=== PATIENT | male | born 1985 | race Caucasian/White ===

== ENCOUNTER 2017-05-06 09:49 | Outpatient (CLI) ==
[2017-05-06 10:07] LABS: BASOPHILS # (AUTO) 0.1 K/uL (0-0.2); BASOPHILS % (AUTO) 1.4 % (0.0-3.0); EOSINOPHILS # (AUTO) 0.2 K/ul (0.0-0.7); EOSINOPHILS % (AUTO) 5.3 % (0.0-7.0); HEMATOCRIT 46.8 % (42.0-52.0); HEMOGLOBIN 16.5 g/dl (14.0-18.0); IMMATURE GRANULOCYTE % (AUTO) 0.5 % (0.0-5.0); LYMPHOCYTES # (AUTO) 1.4 K/uL (0.60-3.4); LYMPHOCYTES % (AUTO) 31.8 (10.0-50.0); MEAN CORPUSCULAR HGB CONC 35.3 (31.8-35.4); MEAN CORPUSCULAR VOLUME 85.1 fl (80.0-94.0); MONOCYTES # (AUTO) 0.3 K/uL (0.4-2.0); MONOCYTES % (AUTO) 7.3 (0-10); NEUTROPHILS # (AUTO) 2.4 K/ul (2.0-6.9); NEUTROPHILS % (AUTO) 53.7; PLATELET COUNT 194 10^3/uL (140-440); WHITE BLOOD COUNT 4.37 K/ul (4.2-10.2)
[2017-05-06 10:48] LABS: ALBUMIN 4.2 g/dL (3.4-5.0); ALBUMIN/GLOBULIN RATIO 1.24; ANION GAP 14.9; BILIRUBIN,TOTAL 0.76 mg/dL (0.00-1.20); BUN/CREATININE RATIO 13.72; CALCIUM 10.4 mg/dL (8.2-10.2); CHOL/HDL RATIO 6.6 (4.5-6.4); CREATININE 1.02 mg/dL (0.60-1.10); POTASSIUM 3.9 mmol/L (3.5-5.1); TOTAL PROTEIN 7.6 g/dL (6.4-8.2)
== END 2017-05-06 09:50 | disposition home or self-care (01) ==
LOC: LAB 09:49
PROVIDERS: ATTEND Internal Medicine
DX: Z68.31 Body mass index [BMI] 31.0-31.9, adult (principal); Z82.49 Family history of ischemic heart disease and other diseases of the circulatory system
CPT/HCPCS: 36415; 80053; 80061; 83036; 84439; 84443; 85025; 86140; 86141

== ENCOUNTER 2018-01-23 11:32 | Emergency (ER) ==
[2018-01-23 11:35] VITALS: BP 165/103; TEMP 98.2; BMI 28.7
[2018-01-23] MEDS ORDERED: LOMOTIL PO STA (12:31)
[2018-01-23] MEDS ORDERED: SODIUM CHLORIDE 1,000 ML IV STA (12:33)
--- NOTE | 2018-01-23 13:21 | CT ---
EXAM: CT of the abdomen pelvis without contrast History: Abdominal pain and diarrhea. Technique: Multiplanar CT images through the abdomen and pelvis were obtained without the administra tion of IV contrast Findings: Lung bases are free of consolidation. Subsegmental atelectasis seen within the left lower lung. No acute osseous abnormalities. No discrete gallstones identified by CT. The liver might be fatty. No focal liver or splenic lesion s. No peripancreatic inflammation. Adrenal glands are unremarkable. Nonspecific mid mesenteric str anding probably related to the enteritis. The appendix is normal. No renal stones and no hydronephr osis. No free air. No ascites. No bladder wall thickening. Prostate is not enlarged. Fluid seen in the stomach. Nondilated fluid filled loops of small bowel. Fluid seen within the colon. No obvi ous bowel wall thickening. Small reactive mesenteric lymph nodes. Impression: 1. Mild gastroenterocolitis probably of viral etiology. No bowel obstruction. 2. Possible fatty liver.
--- NOTE | 2018-01-23 13:54 | ED.PDOC ---
General ED Provider: Dr. DIANELYS BULL Chief Complaint: Diarrhea Stated Complaint: diarrhea Time Seen by Physician: 11:33 Mode of Arrival: Walk-In Information Source: Patient Exam Limitations: No limitations Primary Care Provider: ELIAZAR BYRD Nursing and Triage Documentation Reviewed and Agree: Yes Reviewed sepsis parameters & appropriate labs ordered?: Yes (seen with blanca present) System Inflammatory Response Syndrome: Not Applicable Sepsis Protocol: For patient's 13 years and over: Temp is 96.8 and below OR 101 and greater Pulse >90 BPM Resp >20/minute Acutely Altered Mental Status Are patient's symptoms suggestive of a new infection, such as: -Pneumonia -Skin, Soft Tissue -Endocarditis -UTI -Bone, Joint Infection -Implantable Device -Acute Abdominal Infection -Wound Infection -Meningitis -Blood Stream Catheter Infection -Unknown GI Complaint Exam - Abdominal Pain Complaint/Exam Onset: Gradual Duration: 4 days Symptoms Are: Resolved Timing: Intermittent Initial Severity: Moderate Current Severity: None Location of Pain: Diffuse Radiates To: Denies: Chest, Back, Flank, LLQ, RLQ, Inguinal Character: Reports: Aching Aggravating: Reports: None Alleviating: Reports: None Associated Signs and Symptoms: Reports: Diarrhea. Denies: Diaphoresis, Fever, Cough, Chest pain, Dizziness, Back pain, Constipation, Blood in stool, Dysuria, Urinary frequency, Decreased urine output, Decreased appetite, Discharge, Nausea , Vomiting, Decreased activity AAA Risk Factors: Reports: None Cardiac Risk Factors: Reports: None Testicular Torsion Risk Factors: Reports: None Surgical Obstruction Risk Factors: Reports: None Related Surgical History: Reports: None Abdominal Findings: Present: None Differential Diagnoses: Gastroenteritis, Hepatitis Review of Systems - Review Of Systems Constitutional: Reports: No symptoms Eyes: Reports: No symptoms Ears, Nose, Mouth, Throat: Reports: No symptoms Respiratory: Reports: No symptoms Cardiac: Reports: No symptoms GI: Reports: Abdominal pain, Diarrhea : Reports: No symptoms Musculoskeletal: Reports: No symptoms Skin: Reports: No symptoms Neurological: Reports: No symptoms Endocrine: Reports: No symptoms Hematologic/Lymphatic: Reports: No symptoms All Other Systems: Reviewed and Negative Past Medical History - Past Medical History Previously Healthy: Yes Endocrine: Reports: None Cardiovascular: Reports: None Respiratory: Reports: None Hematological: Reports: None Gastrointestinal: Reports: None Genitourinary: Reports: None Neuro/Psych: Reports: None Musculoskeletal: Reports: None Cancer: Reports: None - Surgical History General Surgical History: Reports: None - Family History Family History: Reports: None - Social History Smoking Status: Never smoker Hx Substance Use: No Alcohol Screening: None Physical Exam - Physical Exam Appearance: Well-appearing, No pain distress, Well-nourished Eyes: VIVI, EOMI, Conjunctiva clear ENT: Ears normal, Nose normal, Oropharynx normal Respiratory: Airway patent, Breath sounds clear, Breath sounds equal, Respirations nonlabored Cardiovascular: RRR, Pulses normal, No rub, No murmur GI/: Soft, Nontender, No masses, Bowel sounds normal, No Organomegaly Musculoskeletal: Normal strength, ROM intact, No edema, No calf tenderness Skin: Warm, Dry, Normal color Neurological: Sensation intact, Motor intact, Reflexes intact, Cranial nerves intact, Alert, Oriented Psychiatric: Affect appropriate, Mood appropriate Interpretation - Radiology Interpretation Radiology Interpretation By: Radiologist Radiology Results: No acute changes Critical Care Note - Critical Care Note Total Time (mins): 0 Course - Course Hematology/Chemistry: 01/23/18 12:50 01/23/18 12:50 Orders, Labs, Meds: Lab Review 01/23/18 01/23/18 12:50 12:50 WBC 7.02 RBC 5.94 Hgb 17.7 Hct 50.3 MCV 84.7 MCH 29.8 MCHC 35.2 RDW Coeff of Samm 12.5 Plt Count 233 Immature Gran % (Auto) 0.3 Neut % (Auto) 59.3 Lymph % (Auto) 24.2 [place] % (Auto) 9.5 Eos % (Auto) 5.4 Baso % (Auto) 1.3 Immature Gran # (Auto) 0.0 Neut # (Auto) 4.2 Lymph # (Auto) 1.7 [place] # (Auto) 0.7 Eos # (Auto) 0.4 Baso # (Auto) 0.1 Sodium 137 Potassium 3.6 Chloride 105 Carbon Dioxide 20 L Anion Gap 15.6 BUN 21 H Creatinine 1.10 Estimated GFR (MDRD) 78.00 BUN/Creatinine Ratio 19.09 Glucose 89 Calcium 9.6 Total Bilirubin 1.2 AST 104 H ALT 227 H Alkaline Phosphatase 153 H Total Protein 8.1 Albumin 4.3 Globulin 3.8 Albumin/Globulin Ratio 1.13 Orders Category Date Time Status C-DIFF MONITORING (NURSING) BID CARE 01/23/18 12:31 Active ED IV/MEDIPORT/POWERPORT .ONCE EMERGENCY 01/23/18 12:33 Active CBC W/ AUTO DIFF Stat LAB 01/23/18 12:50 Completed COMPREHENSIVE METABOLIC PANEL Stat LAB 01/23/18 12:50 Completed HEPATITIS PANEL, ACUTE Stat LAB 01/23/18 13:51 Ordered c-diff [C. DIFFICILE] Routine LAB 01/23/18 12:31 Uncollected 0.9 % Sodium Chloride [Saline Flush] MEDS 01/23/18 12:33 Active 1 syr IVF PRN PRN Diphenoxylate HCl/Atropine [Lomotil] MEDS 01/23/18 12:31 Discontinued 2 tab PO ONCE STA Sodium Chloride 0.9% [Sodium Chloride] 1,000 ml MEDS 01/23/18 12:[address] ABDOMEN/PELVIS WO CONTRAST Stat RADS 01/23/18 12:30 Completed Medications Generic Name Dose Route Start Last Admin Trade Name Freq PRN Reason Stop Dose Admin Sodium Chloride 1 syr 01/23/18 12:33 01/23/18 13:02 Saline Flush IVF 1 syr PRN PRN Administration To flush IV Discontinued Medications Generic Name Dose Route Start Last Admin Trade Name Freq PRN Reason Stop Dose Admin Diphenoxylate HCl/Atropine 2 tab 01/23/18 12:31 01/23/18 13:02 Lomotil PO 01/23/18 12:32 2 tab ONCE STA Administration Sodium Chloride 1,000 mls @ 1,000 mls/hr 01/23/18 12:33 01/23/18 13:07 Sodium Chloride IV 01/23/18 13:32 1,000 mls/hr BOLUS STA Administration Vital Signs: Temp Pulse Resp BP Pulse Ox 01/23/18 11:32 98.2 F 97 H 20 165/103 H 98 Departure - Departure Time of Disposition: 13:54 Disposition: HOME SELF-CARE Discharge Problem: Diarrhea Instructions: Abdominal Pain (ED), Dehydration (ED), Acute Diarrhea (ED) Condition: Good Pt referred to PMD for follow-up: Yes IPMP verified?: No Additional Instructions: Please call your Family Physician as soon as possible to schedule a follow-up appointment. see yourMD SOON POSSIBLE THERE IS A POSSIBILITY THAT YOU HAVE A HEPATITIS TESTS HAVE BEEN ORDERED OBTAIN RESULT FOLLOW UP WITH YOUR MD. FAILURE TO DO SO MAY RESULT IN SERIOUS LIVER FAILURE Allergies/Adverse Reactions: Allergies No Known Allergies Allergy (Unverified 01/23/18 11:35) Home Medications: Ambulatory Orders 1 [No Reported Medications] 01/23/18 Disposition Discussed With: Patient
== END 2018-01-23 14:39 | disposition home or self-care (01) ==
LOC: ED 11:32
DX: R19.7 Diarrhea, unspecified (principal); R10.84 Generalized abdominal pain
CPT/HCPCS: 36415; 80053; 80074; 85025; 96360; 99283

== ENCOUNTER 2018-01-24 19:18 | Emergency (ER) ==
[2018-01-24 19:19] VITALS: BMI 28.7
[2018-01-24 19:21] VITALS: BP 159/102; TEMP 97.9
[2018-01-24] MEDS ORDERED: ZOFRAN 4 MG/2 ML IM STA (19:54)
--- NOTE | 2018-01-24 19:56 | ED.PDOC ---
General ED Provider: Dr. DAMEON TAVARES Chief Complaint: Abdominal Pain Stated Complaint: Patient was here yesterday for the same problem, Ct scan showed enteritis, says he went home had 2 vomiting, 2-3 diarrhea, feels bloated so came back. Time Seen by Physician: 19:55 Mode of Arrival: Walk-In Information Source: Patient Primary Care Provider: ELIAZAR BYRD Nursing and Triage Documentation Reviewed and Agree: Yes Reviewed sepsis parameters & appropriate labs ordered?: Yes System Inflammatory Response Syndrome: Not Applicable Sepsis Protocol: For patient's 13 years and over: Temp is 96.8 and below OR 101 and greater Pulse >90 BPM Resp >20/minute Acutely Altered Mental Status Are patient's symptoms suggestive of a new infection, such as: -Pneumonia -Skin, Soft Tissue -Endocarditis -UTI -Bone, Joint Infection -Implantable Device -Acute Abdominal Infection -Wound Infection -Meningitis -Blood Stream Catheter Infection -Unknown GI Complaint Exam - Abdominal Pain Complaint/Exam Onset: Gradual Symptoms Are: Still present Timing: Constant Initial Severity: Moderate Current Severity: Moderate Location of Pain: Discrete, Epigastric Character: Reports: Dull, Cramping Aggravating: Reports: None Alleviating: Reports: None Associated Signs and Symptoms: Reports: Nausea, Vomiting, Diarrhea. Denies: Diaphoresis, Fever, Cough, Chest pain, Dizziness, Back pain, Constipation, Blood in stool, Dysuria, Urinary frequency, Decreased urine output, Decreased appetite, Discharge, Decreased activity Related History: Reports: Similar episode AAA Risk Factors: Reports: None Cardiac Risk Factors: Reports: None Testicular Torsion Risk Factors: Reports: None Surgical Obstruction Risk Factors: Reports: None Related Surgical History: Reports: None Abdominal Findings: Present: None Differential Diagnoses: Gastroenteritis Review of Systems - Review Of Systems Constitutional: Reports: No symptoms Eyes: Reports: No symptoms Ears, Nose, Mouth, Throat: Reports: No symptoms Respiratory: Reports: No symptoms Cardiac: Reports: No symptoms GI: Reports: Abdominal pain, Nausea, Vomiting : Reports: No symptoms Musculoskeletal: Reports: No symptoms Skin: Reports: No symptoms Neurological: Reports: No symptoms Endocrine: Reports: No symptoms Hematologic/Lymphatic: Reports: No symptoms All Other Systems: Reviewed and Negative Past Medical History - Past Medical History Previously Healthy: Yes Endocrine: Reports: None Cardiovascular: Reports: None Respiratory: Reports: None Hematological: Reports: None Gastrointestinal: Reports: Other (elevated liver enzymes) Genitourinary: Reports: None Neuro/Psych: Reports: None Musculoskeletal: Reports: None Cancer: Reports: None - Surgical History General Surgical History: Reports: None - Family History Family History: Reports: None - Social History Smoking Status: Never smoker Hx Substance Use: No Alcohol Screening: None - Immunizations Tetanus Shot up to Date: Yes Physical Exam - Physical Exam Appearance: Well-appearing, No pain distress, Well-nourished Eyes: VIVI, EOMI, Conjunctiva clear ENT: Ears normal, Nose normal, Oropharynx normal Respiratory: Airway patent, Breath sounds clear, Breath sounds equal, Respirations nonlabored Cardiovascular: RRR, Pulses normal, No rub, No murmur GI/: Soft, Nontender, No masses, Bowel sounds normal, No Organomegaly Musculoskeletal: Normal strength, ROM intact, No edema, No calf tenderness Skin: Warm, Dry, Normal color Neurological: Sensation intact, Motor intact, Reflexes intact, Cranial nerves intact, Alert, Oriented Psychiatric: Affect appropriate, Mood appropriate Interpretation - Radiology Interpretation Radiology Interpretation By: Radiologist Radiology Results: Positive (diarrhea.) Critical Care Note - Critical Care Note Total Time (mins): 30 Course - Course Hematology/Chemistry: 01/24/18 19:55 01/24/18 19:55 Orders, Labs, Meds: Lab Review 01/24/18 01/24/18 19:55 19:55 WBC 8.44 RBC 5.32 Hgb 15.8 Hct 45.0 MCV 84.6 MCH 29.7 MCHC 35.1 RDW Coeff of Samm 12.6 Plt Count 211 Immature Gran % (Auto) 0.4 Neut % (Auto) 71.1 Lymph % (Auto) 13.6 [place] % (Auto) 9.6 Eos % (Auto) 4.6 Baso % (Auto) 0.7 Immature Gran # (Auto) 0.0 Neut # (Auto) 6.0 Lymph # (Auto) 1.2 [place] # (Auto) 0.8 Eos # (Auto) 0.4 Baso # (Auto) 0.1 Sodium 141 Potassium 3.4 L Chloride 108 H Carbon Dioxide 22 Anion Gap 14.4 BUN 13 Creatinine 1.07 Estimated GFR (MDRD) 80.00 BUN/Creatinine Ratio 12.14 Glucose 106 H Calcium 9.0 Total Bilirubin 0.8 AST 98 H ALT 229 H Alkaline Phosphatase 144 H Total Protein 7.2 Albumin 4.0 Globulin 3.2 Albumin/Globulin Ratio 1.25 Amylase 42 Lipase 15 Orders Category Date Time Status AMYLASE Stat LAB 01/24/18 19:55 Completed CBC W/ AUTO DIFF Stat LAB 01/24/18 19:55 Completed COMPREHENSIVE METABOLIC PANEL Stat LAB 01/24/18 19:55 Completed LIPASE Stat LAB 01/24/18 19:55 Completed Ondansetron HCl/Pf [Zofran 4 mg/2 ml] MEDS 01/24/18 19:54 Discontinued 4 mg IM ONCE STA CT ABDOMEN/PELVIS WO CONTRAST Stat RADS 01/24/18 19:59 Completed Medications Discontinued Medications Generic Name Dose Route Start Last Admin Trade Name Freq PRN Reason Stop Dose Admin Ondansetron HCl 4 mg 01/24/18 19:54 01/24/18 19:59 Zofran 4 Mg/2 Ml IM 01/24/18 19:55 4 mg ONCE STA Administration Vital Signs: Temp Pulse Resp BP Pulse Ox 01/24/18 19:19 97.9 F 95 H 18 159/102 H 97 Departure - Departure Time of Disposition: 20:43 Disposition: HOME SELF-CARE Discharge Problem: Abdominal pain, Gastroenteritis Instructions: Gastroenteritis (ED) Condition: Stable Pt referred to PMD for follow-up: Yes IPMP verified?: No Additional Instructions: Increase Hydration liquid diet for 3-4 days f/u with PMD in 4-5 days Prescriptions: Ondansetron [Zofran Odt] 4 mg PO Q8H #20 tab.rapdis Ranitidine HCl [Zantac] 150 mg PO BIDAC #20 tablet Allergies/Adverse Reactions: Allergies No Known Allergies Allergy (Unverified 01/24/18 19:21) Home Medications: Ambulatory Orders Ondansetron [Zofran Odt] 4 mg PO Q8H #20 tab.rapdis 01/24/18 Ranitidine HCl [Zantac] 150 mg PO BIDAC #20 tablet 01/24/18 Disposition Discussed With: Patient
--- NOTE | 2018-01-24 20:23 | CT ---
EXAM: CT abdomen and pelvis without contrast HISTORY: Abdominal pain and distension TECHNIQUE: Multi-slice transaxial helical with coronal and sagittal reformed images COMPARISON: CT abdomen/pelvis from 01/23/2018 FINDINGS: The dependent lungs are atelectatic. The heart size is normal. No pericardial or pleural effusions are appreciated. The hepatic attenuation is mildly low diffusely relative to the spleen. The gallbladder is present w ithout biliary dilatation. The pancreas adrenal glands are normal. The spleen has normal size and a ttenuation. The kidneys ureters are grossly normal. The nonopacified bladder is normal. There is fluid within the large bowel rectum diffusely suggesting diarrhea. No small bowel distensio n is evident. There is mild subcutaneous edema in the right the mesentery. Small lymph nodes are no malvin in this region. The appendix is normal. No organized fluid collections or ascites are detected. The bones are free of suspicious osteolytic or osteoblastic lesions. IMPRESSION: 1. Findings compatible with diarrhea. Nonobstructive intestinal gas pattern. 2. Suggestion of mesenteric panniculitis. 3. Normal appendix.
== END 2018-01-24 20:46 | disposition home or self-care (01) ==
LOC: ED 19:18
DX: K52.9 Noninfective gastroenteritis and colitis, unspecified (principal); R10.9 Unspecified abdominal pain
CPT/HCPCS: 36415; 80053; 82150; 83690; 85025; 96372; 99283

== ENCOUNTER 2018-01-30 14:46 | Outpatient (CLI) | END 2018-01-30 14:47 | disposition home or self-care (01) | LOC: LAB 14:46 | PROVIDERS: ATTEND Internal Medicine | DX: R94.5 Abnormal results of liver function studies (principal); R19.7 Diarrhea, unspecified; R11.2 Nausea with vomiting, unspecified; Z13.9 Encounter for screening, unspecified | CPT/HCPCS: 36415; 80053; 80061; 83036; 84443; 85025 ==

== ENCOUNTER 2019-01-01 17:42 | Emergency (ER) | payer BC, OTHER ==
[2019-01-01 17:46] VITALS: BP 162/97; TEMP 99.7; BMI 32.3
--- NOTE | 2019-01-01 18:21 | ED.PDOC ---
General ED Provider: Dr. DIANELYS BULL Chief Complaint: Earache Stated Complaint: WAS TRYING TO FLUSH LEFT EAR WITH A SYRINGE BUT WENT TOO FAR STARTED TO HAVE PAIN AND BLEEDING Time Seen by Physician: 18:00 (SEEN WITH SHASTA) Mode of Arrival: Walk-In Information Source: Patient Exam Limitations: No limitations Primary Care Provider: ELIAZAR BYRD Nursing and Triage Documentation Reviewed and Agree: Yes Does patient meet sepsis criteria?: No System Inflammatory Response Syndrome: Not Applicable Sepsis Protocol: For patient's 13 years and over: Temp is 96.8 and below OR 101 and greater Pulse >90 BPM Resp >20/minute Acutely Altered Mental Status Are patient's symptoms suggestive of a new infection, such as: -Pneumonia -Skin, Soft Tissue -Endocarditis -UTI -Bone, Joint Infection -Implantable Device -Acute Abdominal Infection -Wound Infection -Meningitis -Blood Stream Catheter Infection -Unknown Review of Systems - Review Of Systems Constitutional: Reports: No symptoms Eyes: Reports: No symptoms Ears, Nose, Mouth, Throat: Reports: Ear pain (LEFT) Respiratory: Reports: No symptoms Cardiac: Reports: No symptoms GI: Reports: No symptoms : Reports: No symptoms Musculoskeletal: Reports: No symptoms Skin: Reports: No symptoms Neurological: Reports: No symptoms Endocrine: Reports: No symptoms Hematologic/Lymphatic: Reports: No symptoms All Other Systems: Reviewed and Negative Past Medical History - Past Medical History Previously Healthy: Yes Endocrine: Reports: None Cardiovascular: Reports: None Respiratory: Reports: None Hematological: Reports: None Gastrointestinal: Reports: Other (elevated liver enzymes) Genitourinary: Reports: None Neuro/Psych: Reports: None Musculoskeletal: Reports: None Cancer: Reports: None - Surgical History General Surgical History: Reports: None - Family History Family History: Reports: None - Social History Smoking Status: Never smoker Hx Substance Use: No Alcohol Screening: None Physical Exam - Physical Exam Appearance: Well-appearing, No pain distress, Well-nourished Eyes: VIVI, EOMI, Conjunctiva clear ENT: Nose normal (LEFT TM RUPTURE. FRESH AND COAGULATED BLOOD IN LEFT EAR) Respiratory: Airway patent, Breath sounds clear, Breath sounds equal, Respirations nonlabored Cardiovascular: RRR, Pulses normal, No rub, No murmur GI/: Soft, Nontender, No masses, Bowel sounds normal, No Organomegaly Musculoskeletal: Normal strength, ROM intact, No edema, No calf tenderness Skin: Warm, Dry, Normal color Neurological: Sensation intact, Motor intact, Reflexes intact, Cranial nerves intact, Alert, Oriented Psychiatric: Affect appropriate, Mood appropriate Critical Care Note - Critical Care Note Total Time (mins): 0 Course - Course Vital Signs: Temp Pulse Resp BP Pulse Ox 01/01/19 17:42 99.7 F H 86 20 162/97 H 96 Departure - Departure Time of Disposition: 18:20 Disposition: HOME SELF-CARE Discharge Problem: Ruptured ear drum Qualifiers: Laterality: left Qualified Code(s): H72.92 - Unspecified perforation of tympanic membrane, left ear Instructions: Ruptured Eardrum (ED) Condition: Good Pt referred to PMD for follow-up: Yes IPMP verified?: No Additional Instructions: Please call your Family Physician as soon as possible to schedule a follow-up appointment.EAR DRUM IUS RUPTURED SEE YOUR md and [facility] Prescriptions: Hydrocodone Bit/Acetaminophen [[place] 10-325] 1 each PO Q6HR #8 tablet Amoxicillin 500 mg PO Q8HR #21 tablet Allergies/Adverse Reactions: Allergies No Known Allergies Allergy (Verified 01/01/19 17:46) Home Medications: Ambulatory Orders Amoxicillin 500 mg PO Q8HR #21 tablet 01/01/19 Hydrocodone Bit/Acetaminophen [[place] 10-325] 1 each PO Q6HR #8 tablet 01/01/19 Disposition Discussed With: Patient
== END 2019-01-01 18:42 | disposition home or self-care (01) ==
LOC: ED 17:42
DX: H72.92 Unspecified perforation of tympanic membrane, left ear (principal)
CPT/HCPCS: 99282